=== PATIENT | male | born 1955 | race Caucasian/White ===

== ENCOUNTER → 2016-06-10 | Outpatient (CLI) | payer OTHER ==
[~2016-06-10] MED LIST: FUROSEMIDE INJ/PF 40 MG/4 ML SDV ONE
== END ==
LOC: RAD 12:48
PROVIDERS: ATTEND Urology
DX: N13.5 Crossing vessel and stricture of ureter without hydronephrosis (principal)
CPT/HCPCS: 78708; A9562; J1940